=== PATIENT | male | born 1950 | race Caucasian/White ===

== ENCOUNTER 2017-02-06 02:39 | Emergency (ER) | payer MEDICARE, OTHER ==
[~2017-02-06] VITALS: Ht 170.2 cm; Wt 70.5 kg
[2017-02-06] MEDS ORDERED: SLEEP AID PO (02:57)
[2017-02-06] MEDS ORDERED: ANXIETY PO (02:57)
[2017-02-06] MEDS ORDERED: MIRTAZAPINE 15 MG TABLET PO ONE (04:15)
[2017-02-06 04:50] VITALS: BP 128/84
== END 2017-02-06 04:52 | disposition home or self-care (01) ==
LOC: EMS 02:42 → EEVIPCON 02:42 → EMS 04:52
DX: F41.9 Anxiety disorder, unspecified (principal); F10.10 Alcohol abuse, uncomplicated
CPT/HCPCS: 99284